=== PATIENT | male | born 1975 | race Caucasian/White ===

== ENCOUNTER 2017-05-05 11:37 | Day surgery (SDC) | payer MEDICARE, OTHER ==
[~2017-05-05] VITALS: Ht 157.5 cm; Wt 55.1 kg
[2017-05-05 12:18] VITALS: Ht 157.5 cm; Wt 55.1 kg
[2017-05-05] MEDS ORDERED: NORV100 PO (12:26)
[2017-05-05] MEDS ORDERED: ATAZ300C5 PO (12:26)
[2017-05-05] MEDS ORDERED: EMTR1TAB16 PO (12:26)
[2017-05-05] MEDS ORDERED: PROPOFOL 20 ML ONE (13:32)
[2017-05-05 13:43] VITALS: BP 108/58; PULSE 60; RESP 24
[2017-05-05 14:25] VITALS: BP 107/63; PULSE 57; RESP 19
--- NOTE | 2017-06-07 14:48 | GILP ---
DATE OF PROCEDURE: 05/20/2017 PROCEDURE PERFORMED: Esophagogastroduodenoscopy and biopsy. SURGEON: Jaylan Garcia MD. PREOPERATIVE DIAGNOSES: 1. Chronic heartburn. 2. Dysphagia. POSTOPERATIVE DIAGNOSES: 1. Hiatal hernia with reflux esophagitis and severe erosions in the esophagus. 2. Gastritis with erosions. 3. Gastric mucosal biopsies were taken for Helicobacter pylori test. INDICATIONS FOR PROCEDURE: Mr. Nomi Park is a 41-year-old male patient who had chronic heartburn and dysphagia. The patient was scheduled for endoscopic examination for further evaluation. The procedure and possible complications were well explained to the patient. He understood and consented to the procedure. DESCRIPTION OF PROCEDURE: Under the influence of anesthesia the gastroscope was carefully introduced into the esophagus and under direct vision it was advanced to the stomach and to the pylorus and to the duodenal bulb and descending duodenum. Findings esophagus, the patient had a hiatal hernia with reflux esophagitis and severe erosions in the esophagus. There was no stricture or neoplasm. Stomach, the patient had gastritis with erosions. Gastric and mucosal biopsies were taken for a Helicobacter pylori test. The duodenum was normal. He tolerated the procedure very well and there were no complications from the procedure. At the end of procedure he was awake with stable vital signs and he was discharged home in care of his family. IMPRESSION: 1. Hiatal hernia. 2. Reflux esophagitis with severe erosions. 3. Gastritis with erosions. 4. Gastric mucosal biopsies were taken for Helicobacter pylori test. PLAN: 1. Omeprazole 40 mg p.o. b.i.d. 2. Await the Helicobacter pylori test report. Dictated By: MD PRADEEP Deluca/hansel/rené /Document#: [id number] CC: Jaylan Garcia MD;*[facility]*
== END 2017-05-05 14:50 | disposition home or self-care (01) ==
LOC: GIL 11:37
PROVIDERS: ATTEND Internal Medicine Gastroenterology
DX: K44.9 Diaphragmatic hernia without obstruction or gangrene (principal); K29.50 Unspecified chronic gastritis without bleeding
CPT/HCPCS: 87081

== ENCOUNTER 2019-03-07 22:10 | Emergency (ER) | payer MEDICARE, OTHER ==
[~2019-03-07] VITALS: Wt 58.5 kg
[~2019-03-07 22:10] MED LIST: ATAZ300C PO; EMTR1TAB16 PO; NORV100 PO
[2019-03-07] MEDS ORDERED: CLIN300C10 PO (23:44)
--- NOTE | 2019-03-07 23:46 | ERD ---
ER Documentation Chief Complaint Chief Complaint ABSCESS/BITE ON R LOWER GLUTE X'S 3 DAYS HPI This is a 43-year-old male who presents with an area of redness and swelling to his right buttocks that he has had for about a week. He did notice a little bit of purulent drainage come out of it after he took a warm shower. He has had no fever. 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 ROS All systems reviewed and are negative except as per history of present illness. Medications Home Meds Active Scripts Clindamycin Hcl* (Clindamycin Hcl*) 300 Mg Capsule, 300 MG PO TID for 10 Days, CAP Prov:MARSHALL IVORY PA-C 03/07/19 Reported Medications Emtricitabine/Tenofov Alafenam (Descovy 200-25 mg Tablet) 1 Each Tablet, 1 EACH PO DAILY, TAB 05/05/17 Ritonavir* (Norvir*) 100 Mg Capsule, 100 MG PO DAILY, CAP 05/05/17 Atazanavir Sulfate* (Reyataz*) 300 Mg Capsule, 300 MG PO DAILY, CAP 05/05/17 Allergies Allergies: Coded Allergies: Sulfa (Sulfonamide Antibiotics) (Verified Adverse Reaction, Severe, RASH, 05/05/17) PMhx/Soc History of Surgery: Yes (RIGHT ARM 3RD DEGREE ) Anesthesia Reaction: No Hx Neurological Disorder: No Hx Respiratory Disorders: No Hx Cardiac Disorders: No Hx Psychiatric Problems: No Hx Miscellaneous Medical Probl: Yes (HIV + ; GASTRITIS) Hx Alcohol Use: No Hx Substance Use: No Hx Tobacco Use: No FmHx Family History: No diabetes Physical Exam Vitals Vital Signs Date Temp Pulse Resp B/P (MAP) Pulse Ox O2 O2 Flow FiO2 Time Delivery Rate 03/07/19 97.6 85 18 132/71 98 22:18 (91) Physical Exam Const: No acute distress Head: Atraumatic Eyes: Normal Conjunctiva ENT: Normal External Ears, Nose and Mouth. Neck: Full range of motion. No meningismus. Resp: Clear to auscultation bilaterally Cardio: Regular rate and rhythm, no murmurs Skin: Right buttocks has a small dime sized area of erythema and induration, no fluctuance, tender to palpation, no active bleeding or drainage Procedures/MDM Is a 43-year-old male who has cellulitis of early versus early abscess formation. There is no indication for incision and drainage at this time. Prescription for clindamycin was given. Patient counseled regarding my diagnostic impression and care plan. Prior to discharge all questions answered. Pt agrees with treatment plan and understands strict return precautions. Pt is instructed to follow up with primary care provider within 24-48 hours. Precautionary instructions provided including instructions to return to the ER if not improving or for any worsening or changing symptoms or concerns. Departure Diagnosis: Primary Impression: Cellulitis Condition: Stable Patient Instructions: Cellulitis Additional Instructions: Call your primary care doctor TOMORROW for an appointment during the next 1-2 days.See the doctor sooner or return here if your condition worsens before your appointment time. MARSHALL IVORY PA-C March 07, 2019 23:46
[2019-03-08 00:11] VITALS: BP 121/75; PULSE 77; RESP 18
== END 2019-03-08 00:12 | disposition home or self-care (01) ==
LOC: FTE 22:10
DX: L03.317 Cellulitis of buttock (principal)
CPT/HCPCS: 99283